=== PATIENT | female | born 1975 | race Caucasian/White ===

== ENCOUNTER 2017-03-21 20:01 | Emergency (ER) | payer OTHER ==
[2017-03-21 20:37] VITALS: BP 196/91; PULSE 97; RESP 16; TEMP 98.3
--- NOTE | 2017-03-21 21:45 | ED ---
URI HPI - General Chief Complaint: Upper Respiratory Infection Stated Complaint: sick/cough/ear ache Time Seen by Provider: 03/21/17 21:33 Source: patient, RN notes reviewed Mode of arrival: ambulatory Limitations: no limitations - History of Present Illness Initial Comments: This is a pleasant 41-year-old female presents emergency department complaining of right ear pain. Patient has had some symptoms of upper respiratory infection for the past few days. However today she started getting pain in the right ear. Patient has mild dizziness with change of position. Patient also has pressure and popping in the ear. Patient denies any proximal swallowing. No shortness of breath. No chest pain or fever. Patient is a cigarette smoker. Patient does have a history of hypertension. Patient has a primary care physician she can follow-up with. No abdominal pain. No nausea or vomiting. No change in bowel much urination. No rashes or lesions. - Related Data Previous Rx's Medication Instructions Recorded Cephalexin [Keflex] 500 mg PO Q12HR 7 Days 09/04/16 Amoxicillin 500 mg PO Q8H #30 capsule 03/21/17 Allergies Allergy/AdvReac Type Severity Reaction Status Date / Time No Known Allergies Allergy Verified 09/04/16 14:20 Review of Systems ROS Statement: Those systems with pertinent positive or pertinent negative responses have been documented in the HPI. ROS Other: All systems not noted in ROS Statement are negative. Past Medical History Past Medical History: No Reported History History of Any Multi-Drug Resistant Organisms: None Reported Past Surgical History: No Surgical Hx Reported Past Psychological History: No Psychological Hx Reported Smoking Status: Current every day smoker Past Alcohol Use History: None Reported Past Drug Use History: None Reported General Exam - General Exam Comments Initial Comments: Well-developed, well-nourished 41-year-old female in no distress Limitations: no limitations General appearance: alert, in no apparent distress Head exam: Present: atraumatic, normocephalic, normal inspection Eye exam: Present: normal appearance, PERRL, EOMI. Absent: scleral icterus, conjunctival injection, periorbital swelling ENT exam: Present: normal exam, mucous membranes moist, normal external ear exam , other (Right TM is erythematous, loss of landmarks, dullness). Absent: TM's normal bilaterally Neck exam: Present: normal inspection. Absent: tenderness, meningismus, lymphadenopathy Respiratory exam: Present: normal lung sounds bilaterally. Absent: respiratory distress, wheezes, rales, rhonchi, stridor Cardiovascular Exam: Present: regular rate, normal rhythm, normal heart sounds. Absent: systolic murmur, diastolic murmur, rubs, gallop, clicks GI/Abdominal exam: Present: soft, normal bowel sounds. Absent: distended, tenderness, guarding, rebound, rigid Extremities exam: Present: normal inspection, full ROM, normal capillary refill. Absent: tenderness, pedal edema, joint swelling, calf tenderness Back exam: Present: normal inspection Neurological exam: Present: alert, oriented X3, CN II-XII intact Psychiatric exam: Present: normal affect, normal mood Skin exam: Present: warm, dry, intact, normal color. Absent: rash Course Vital Signs 03/21/17 20:22 Temperature 98.3 F Pulse Rate 97 Respiratory 16 Rate Blood Pressure 196/91 O2 Sat by Pulse 98 Oximetry Medical Decision Making - Medical Decision Making I did discuss the patient's blood pressure area patient apparently has had elevated blood pressure in the past but is not treated. Patient should follow- up with her regular physician regarding that.Smoking cessation was discussed for greater than 3 minutes with the patient. Risks of smoking were discussed. Health issues and secondhand smoke issues were discussed. Patient was advised stop smoking. The patient was found to be hypertensive in the ER today. Findings were reviewed with the patient. Patient was advised to follow-up with the primary care physician for further evaluation of blood pressure. Return parameters and follow-up parameters discussed Disposition Clinical Impression: Acute otitis media, right, Hypertension, poor control Disposition: HOME SELF-CARE Condition: Good Instructions: Otitis Media (ED), Hypertension (ED) Additional Instructions: Alternate acetaminophen and ibuprofen for discomfort. Take the antibiotics as directed. Follow-up with your regular physician without fail. Discharge instructions Prescriptions: Amoxicillin 500 mg PO Q8H #30 capsule Referrals: Curly Walker MD [Primary Care Provider] - 1-2 days Time of Disposition: 21:41
== END 2017-03-21 21:47 | disposition home or self-care (01) ==
LOC: EC 20:01
DX: H66.91 Otitis media, unspecified, right ear (principal); I10 Essential (primary) hypertension; R42 Dizziness and giddiness; F17.210 Nicotine dependence, cigarettes, uncomplicated
CPT/HCPCS: 99283

== ENCOUNTER 2019-02-08 10:08 | Emergency (ER) | payer OTHER ==
[2019-02-08 10:52] VITALS: RESP 18
[2019-02-08] MEDS ORDERED: SODIUM CHLORIDE 0.9% 1,000 ML IV STA (10:56)
[2019-02-08] MEDS ORDERED: KETOROLAC 30 MG/ML 1 ML VIAL IVP STA (11:01)
[2019-02-08 11:53] LABS: Anisocytosis Slight; Basophils % (A) 0 %; Eosinophils % (A) 1 %; HCT 36.2 % (34.0-46.0); HGB 11.8 gm/dL (11.4-16.0); Lymphocytes # (A) 0.7 k/uL (1.0-4.8); Lymphocytes % (A) 12 %; MCH 24.4 pg (25.0-35.0); MCHC 32.7 g/dL (31.0-37.0); MCV 74.6 fL (80.0-100.0); Mean Platelet Volume 7.1; Microcytosis Moderate; Monocytes # (A) 0.5 k/uL (0-1.0); Monocytes % (A) 8 %; Neutrophils # (A) 4.7 k/uL (1.3-7.7); Neutrophils % (A) 75 %; Platelet Count 223 k/uL (150-450); RBC 4.86 m/uL (3.80-5.40); RDW 17.3 % (11.5-15.5); WBC 6.2 k/uL (3.8-10.6)
[2019-02-08 12:01] LABS: ALT 25 U/L (9-52); AST 25 U/L (14-36); Albumin 4.7 g/dL (3.5-5.0); Alkaline Phosphatase 100 U/L (38-126); Amylase 58 U/L (30-110); Anion Gap 12 mmol/L; Blood Urea Nitrogen 12 mg/dL (7-17); Calcium 9.1 mg/dL (8.4-10.2); Carbon Dioxide 24 mmol/L (22-30); Chloride 103 mmol/L (98-107); Glucose 112 mg/dL (74-99); Lipase 49 U/L (23-300); Potassium 3.8 mmol/L (3.5-5.1); Sodium 139 mmol/L (137-145); Total Bilirubin 0.8 mg/dL (0.2-1.3); Total Protein 7.9 g/dL (6.3-8.2)
--- NOTE | 2019-02-08 12:09 | ED ---
Abdominal Pain HPI - General Chief Complaint: Abdominal Pain Stated Complaint: Stomach pain Time Seen by Provider: 02/08/19 10:55 Source: patient, RN notes reviewed Mode of arrival: ambulatory Limitations: no limitations - History of Present Illness Initial Comments: 43-year-old female presents emergency Department chief complaint of left-sided abdominal pain. Patient states started a few days ago associated fever. Patient had no diarrhea no constipation melena or hematochezia. She has no dysuria no hematuria no history kidney stones. She denies any prior bowel infections including diverticulitis or colitis. Patient states that movement and laying back makes the pain worse. Denies any chest pain or shortness breath. Patient has been taking Motrin but last dose was last night. - Related Data Home Medications Medication Instructions Recorded Confirmed No Known Home Medications 02/08/19 02/08/19 Allergies Allergy/AdvReac Type Severity Reaction Status Date / Time bupropion [From Wellbutrin] Allergy Anaphylaxis Verified 02/08/19 11:18 varenicline [From Chantix] Allergy Anaphylaxis Verified 02/08/19 11:18 opoids Allergy Anaphylaxis Uncoded 02/08/19 10:53 Review of Systems ROS Statement: Those systems with pertinent positive or pertinent negative responses have been documented in the HPI. ROS Other: All systems not noted in ROS Statement are negative. Past Medical History Past Medical History: No Reported History History of Any Multi-Drug Resistant Organisms: None Reported Past Surgical History: No Surgical Hx Reported Past Psychological History: No Psychological Hx Reported Smoking Status: Current every day smoker Past Alcohol Use History: None Reported Past Drug Use History: None Reported General Exam Limitations: no limitations General appearance: alert, in no apparent distress Head exam: Present: atraumatic, normocephalic, normal inspection Neck exam: Present: normal inspection. Absent: tenderness, meningismus, lymphadenopathy Respiratory exam: Present: normal lung sounds bilaterally. Absent: respiratory distress, wheezes, rales, rhonchi, stridor Cardiovascular Exam: Present: regular rate, normal rhythm, normal heart sounds. Absent: systolic murmur, diastolic murmur, rubs, gallop, clicks GI/Abdominal exam: Present: soft, tenderness (Moderate left-sided abdominal tenderness), normal bowel sounds. Absent: distended, guarding, rebound, rigid Back exam: Absent: CVA tenderness (R), CVA tenderness (L) Neurological exam: Present: alert, oriented X3, CN II-XII intact Skin exam: Present: warm, dry, intact, normal color. Absent: rash Course Vital Signs 02/08/19 10:50 Temperature 99.0 F Pulse Rate 109 H Respiratory 18 Rate Blood Pressure 171/95 O2 Sat by Pulse 96 Oximetry Medical Decision Making - Medical Decision Making 43-year-old female presented for abdominal pain labs, CT was obtained CT shows evidence of aortitis. Patient case discussed with Dr. Jake meek we discussed the case with infectious disease who recommends patient be transferred to a large facility for possible rheumatology. Patient was given IV steroids and antibiotics. - Lab Data Result diagrams: 02/08/19 11:30 02/08/19 11:30 Lab Results 02/08/19 02/08/19 02/08/19 Range/Units 11:30 11:30 11:30 WBC 6.2 (3.8-10.6) k/uL RBC 4.86 (3.80-5.40) m/uL Hgb 11.8 (11.4-16.0) gm/dL Hct 36.2 (34.0-46.0) % MCV 74.6 L (80.0-100.0) fL MCH 24.4 L (25.0-35.0) pg MCHC 32.7 (31.0-37.0) g/dL RDW 17.3 H (11.5-15.5) % Plt Count 223 (150-450) k/uL Neutrophils % 75 % Lymphocytes % 12 % Monocytes % 8 % Eosinophils % 1 % Basophils % 0 % Neutrophils # 4.7 (1.3-7.7) k/uL Lymphocytes # 0.7 L (1.0-4.8) k/uL Monocytes # 0.5 (0-1.0) k/uL Eosinophils # 0.0 (0-0.7) k/uL Basophils # 0.0 (0-0.2) k/uL Anisocytosis Slight Microcytosis Moderate Sodium 139 (137-145) mmol/L Potassium 3.8 (3.5-5.1) mmol/L Chloride 103 (98-107) mmol/L Carbon Dioxide 24 (22-30) mmol/L Anion Gap 12 mmol/L BUN 12 (7-17) mg/dL Creatinine 0.52 (0.52-1.04) mg/dL Est GFR (CKD-EPI)AfAm >90 (>60 ml/min/1.73 sqM) Est GFR (CKD-EPI)NonAf >90 (>60 ml/min/1.73 sqM) Glucose 112 H (74-99) mg/dL Plasma Lactic Acid Rio 0.9 (0.7-2.0) mmol/L Calcium 9.1 (8.4-10.2) mg/dL Total Bilirubin 0.8 (0.2-1.3) mg/dL AST 25 (14-36) U/L ALT 25 (9-52) U/L Alkaline Phosphatase 100 (38-126) U/L Total Protein 7.9 (6.3-8.2) g/dL Albumin 4.7 (3.5-5.0) g/dL Amylase 58 (30-110) U/L Lipase 49 (23-300) U/L Urine Color Urine Appearance (Clear) Urine pH (5.0-8.0) Ur Specific Merritt (1.001-1.035) Urine Protein (Negative) Urine Glucose (UA) (Negative) Urine Ketones (Negative) Urine Blood (Negative) Urine Nitrite (Negative) Urine Bilirubin (Negative) Urine Urobilinogen (<2.0) mg/dL Ur Leukocyte Esterase (Negative) Urine RBC (0-5) /hpf Urine WBC (0-5) /hpf Ur Squamous Epith Cells (0-4) /hpf Urine Mucus (None) /hpf Urine HCG, Qual (Not Detectd) 02/08/19 02/08/19 Range/Units 13:13 13:13 WBC (3.8-10.6) k/uL RBC (3.80-5.40) m/uL Hgb (11.4-16.0) gm/dL Hct (34.0-46.0) % MCV (80.0-100.0) fL MCH (25.0-35.0) pg MCHC (31.0-37.0) g/dL RDW (11.5-15.5) % Plt Count (150-450) k/uL Neutrophils % % Lymphocytes % % Monocytes % % Eosinophils % % Basophils % % Neutrophils # (1.3-7.7) k/uL Lymphocytes # (1.0-4.8) k/uL Monocytes # (0-1.0) k/uL Eosinophils # (0-0.7) k/uL Basophils # (0-0.2) k/uL Anisocytosis Microcytosis Sodium (137-145) mmol/L Potassium (3.5-5.1) mmol/L Chloride (98-107) mmol/L Carbon Dioxide (22-30) mmol/L Anion Gap mmol/L BUN (7-17) mg/dL Creatinine (0.52-1.04) mg/dL Est GFR (CKD-EPI)AfAm (>60 ml/min/1.73 sqM) Est GFR (CKD-EPI)NonAf (>60 ml/min/1.73 sqM) Glucose (74-99) mg/dL Plasma Lactic Acid Rio (0.7-2.0) mmol/L Calcium (8.4-10.2) mg/dL Total Bilirubin (0.2-1.3) mg/dL AST (14-36) U/L ALT (9-52) U/L Alkaline Phosphatase (38-126) U/L Total Protein (6.3-8.2) g/dL Albumin (3.5-5.0) g/dL Amylase (30-110) U/L Lipase (23-300) U/L Urine Color Yellow Urine Appearance Clear (Clear) Urine pH 7.0 (5.0-8.0) Ur Specific Merritt >1.050 H (1.001-1.035) Urine Protein Trace H (Negative) Urine Glucose (UA) Negative (Negative) Urine Ketones 1+ H (Negative) Urine Blood Small H (Negative) Urine Nitrite Negative (Negative) Urine Bilirubin Negative (Negative) Urine Urobilinogen 2.0 (<2.0) mg/dL Ur Leukocyte Esterase Negative (Negative) Urine RBC 2 (0-5) /hpf Urine WBC <1 (0-5) /hpf Ur Squamous Epith Cells 2 (0-4) /hpf Urine Mucus Rare H (None) /hpf Urine HCG, Qual Not Detected (Not Detectd) Disposition Clinical Impression: Aortitis Disposition: OTHER INSTITUTION NOT DEFINED Condition: Stable Referrals: Curly Walker MD [Primary Care Provider] - 1-2 days Time of Disposition: 13:49 - Out of Hospital Transfer - Req. Specs Out of Hospital Transfer - Requested Specifics: Other Emergency Center ([facility])
--- NOTE | 2019-02-08 12:36 | CT ---
EXAMINATION TYPE: CT abdomen pelvis w con DATE OF EXAM: 02/08/2019 COMPARISON: None HISTORY: RUQ pain CT DLP: 1959.9 mGycm CONTRAST: CT scan of the abdomen and pelvis is performed without Oral Contrast and with IV Contrast, patient in jected with 100 mL of Isovue 300. FINDINGS: LUNG BASES-: No visible nodule. No infiltrate. LIVER/GB: No calcified gallstones. Simple cyst left hepatic lobe measuring 1.5 cm. Biliary tree is of normal caliber. PANCREAS: No inflammation. No distinct mass. SPLEEN: There is evidence of splenomegaly measuring 14.8 cm craniocaudal dimension. No lesion seen. ADRENALS: No nodule. No thickening. KIDNEYS/BLADDER: No hydronephrosis. No nephrolithiasis. No distinct renal mass. Urinary bladder g rossly unremarkable. BOWEL: Normal appendix. Normal bowel caliber. No inflammation. GENITAL ORGANS: No gross abnormality. LYMPH NODES: No greater than 1cm abdominal or pelvic lymph nodes are appreciated. AORTA: There is dirty fat noted adjacent to the abdominal aorta beginning at the take off of the oscar ac axis extending caudally with measurement of approximately 5.6 x 3.9 x 2.5 cm. There is ill-definit ion of the adjacent aortic wall. The findings are of uncertain etiology and could reflect aortitis in fectious and noninfectious types. Additional possibility would be that of developing adenopathy. Stri ct clinical correlation is advised as well as appropriate follow-up. OSSEOUS STRUCTURES: No significant abnormality is seen. OTHER: Low anterior abdominal wall fat-containing hernia. IMPRESSION: 1. There is dirty fat noted adjacent to the abdominal aorta beginning at the take off of the celiac a xis extending caudally with measurement of approximately 5.6 x 3.9 x 2.5 cm. There is ill-definition of the adjacent aortic wall. The findings are of uncertain etiology and could reflect aortitis infect ious and noninfectious types. Additional possibility would be that of developing adenopathy. Strict c linical correlation is advised as well as appropriate follow-up. 2. Splenomegaly
[2019-02-08 13:32] LABS: Appearance,Urine Clear (Clear); Bilirubin,Urine Negative (Negative); Blood,Urine Small (Negative); Color,Urine Yellow; Glucose,Urine (UA) Negative (Negative); Ketones,Urine 1+ (Negative); Leukocyte Esterase,Urine Negative (Negative); Mucus,Urine Rare /hpf; Nitrite,Urine Negative (Negative); Protein,Urine Trace (Negative); RBC,Urine 2 /hpf (0-5); Squamous Epithelial Cell,Urine 2 /hpf (0-4); WBC,Urine <1 /hpf (0-5)
[2019-02-08 13:34] LABS: Specific Gravity,Urine >1.050 (1.001-1.035)
[2019-02-08] MEDS ORDERED: methylPREDNISolone SOD SUCCI 125 MG/2 ML VIAL IV STA (13:38)
[2019-02-08] MEDS ORDERED: PIPERACILLIN-TAZOBACTAM 3.375 GM in SODIUM CHLORIDE 0.9% 100 ML IVPB STA (13:38)
[2019-02-08] MEDS ORDERED: SODIUM CHLORIDE 0.9% 1,000 ML IV SCH (14:00)
[2019-02-08 15:33] VITALS: BP 165/106; PULSE 100; TEMP 98.7
== END 2019-02-08 15:33 | disposition other institution (70) ==
LOC: EC 10:08
DX: I77.6 Arteritis, unspecified (principal); F17.200 Nicotine dependence, unspecified, uncomplicated; Z88.5 Allergy status to narcotic agent; Z88.8 Allergy status to other drugs, medicaments and biological substances
CPT/HCPCS: 36415; 80053; 82150; 83605; 83690; 85025; 81001; 81025; 87040; 74177; 99285; 96365; 96375 ×2; 96361 ×2; J2543; J2930; J1885; Q9967

== ENCOUNTER 2019-11-23 19:47 | Emergency (ER) | payer OTHER ==
[2019-11-23] MEDS ORDERED: predniSONE 20 MG TAB PO STA (20:21)
[2019-11-23] MEDS ORDERED: FAMOTIDINE 20 MG TAB PO STA (20:21)
[2019-11-23] MEDS ORDERED: IPRATROPIUM-ALBUTEROL 3 ML NEB INHALATION STA (20:21)
--- NOTE | 2019-11-23 20:24 | ED ---
General Adult HPI - General Chief complaint: Upper Respiratory Infection Stated complaint: cold Time Seen by Provider: 11/23/19 19:59 Source: patient Mode of arrival: ambulatory Limitations: no limitations - History of Present Illness Initial comments: Patient is a 44-year-old female with history of COPD and asthma presenting to the emergency department with a chief complaint of cough and congestion. States her symptoms began about 2 days ago with a productive cough with white sputum production. Patient also reports wheezing and some shortness of breath but denies any chest pain. States that she feels like her asthma is getting treated again. Patient reports at work she is exposed to dust triggers the collar symptoms to become aggravated. Also reports bilateral otalgia along with sinus congestion. States that she also developed a sore throat. States that she should be using an inhaler Vinnie but cannot find. es any night sweats fevers or chills. Denies any nausea vomiting diarrhea. - Related Data Previous Rx's Medication Instructions Recorded Albuterol Inhaler [Ventolin Hfa 1 - 2 puff INHALATION RT-Q6H PRN 11/23/19 Inhaler] #1 inhaler Azithromycin [Zithromax Z-pack] 0 mg PO DIRECTED #1 pack 11/23/19 Famotidine [Pepcid] 20 mg PO BID #4 tablet 11/23/19 predniSONE 50 mg PO DAILY #5 tab 11/23/19 Allergies Allergy/AdvReac Type Severity Reaction Status Date / Time bupropion [From Wellbutrin] Allergy Anaphylaxis Verified 11/23/19 19:53 varenicline [From Chantix] Allergy Anaphylaxis Verified 11/23/19 19:53 opoids Allergy Anaphylaxis Uncoded 11/23/19 19:53 Review of Systems ROS Statement: Those systems with pertinent positive or pertinent negative responses have been documented in the HPI. ROS Other: All systems not noted in ROS Statement are negative. Past Medical History Past Medical History: No Reported History History of Any Multi-Drug Resistant Organisms: None Reported Past Surgical History: No Surgical Hx Reported Past Psychological History: No Psychological Hx Reported Smoking Status: Current every day smoker Past Alcohol Use History: None Reported Past Drug Use History: None Reported General Exam Limitations: no limitations General appearance: alert, in no apparent distress, obese Head exam: Present: atraumatic, normocephalic, normal inspection Eye exam: Present: normal appearance Pupils: Present: normal accommodation ENT exam: Present: normal exam, normal oropharynx (No tonsillar erythema, enlargement or exudates. Uvula midline.), mucous membranes moist, TM's normal bilaterally, normal external ear exam Neck exam: Present: normal inspection, full ROM. Absent: lymphadenopathy Respiratory exam: Present: wheezes (Bilateral wheezing) Cardiovascular Exam: Present: regular rate, normal rhythm, normal heart sounds GI/Abdominal exam: Present: soft. Absent: distended, tenderness Extremities exam: Present: normal inspection, full ROM, normal capillary refill Back exam: Present: normal inspection, full ROM Neurological exam: Present: alert, oriented X3 Psychiatric exam: Present: normal affect, normal mood Skin exam: Present: warm, dry, intact, normal color Course Vital Signs 11/23/19 11/23/19 11/23/19 19:51 20:29 20:30 Temperature 98.2 F Pulse Rate 92 81 Respiratory 20 20 Rate Blood Pressure 142/93 O2 Sat by Pulse 97 Oximetry 11/23/19 20:37 Temperature Pulse Rate 85 Respiratory Rate Blood Pressure O2 Sat by Pulse Oximetry Medical Decision Making - Medical Decision Making Patient is a 44-year-old female with history of asthma and COPD presenting to the emergency department with a chief complaint of cough and sinus congestion. Exam patient is wheezing bilaterally. States that this feels like asthma exacerbation. Patient is a smoker. ENT examination is unremarkable. Patient was given a breathing treatment with improvement in symptoms. Patient was also given a single dose of Pepcid and prednisone. Patient will be discharged with 5 days of prednisone. She was also given an albuterol inhaler. Patient advised to follow-up with primary care. Influenza negative. X-ray unremarkable. No chest pain. Strict return parameters were thoroughly discussed with patient was understanding and agreeable. Case discussed with physician. - Lab Data Lab Results 11/23/19 Range/Units 19:55 Influenza Type A RNA Not Detected (Not Detectd) Influenza Type B (PCR) Not Detected (Not Detectd) Disposition Clinical Impression: Asthma exacerbation, Cough Disposition: HOME SELF-CARE Condition: Stable Instructions (If sedation given, give patient instructions): COPD (Chronic Obstructive Pulmonary Disease) (DC) Additional Instructions: Take prescribed medication as directed. Follow-up with primary care. Return to emergency department if symptoms worsen. Prescriptions: predniSONE 50 mg PO DAILY #5 tab Albuterol Inhaler [Ventolin Hfa Inhaler] 1 - 2 puff INHALATION RT-Q6H PRN #1 inhaler PRN Reason: Shortness Of Breath Azithromycin [Zithromax Z-pack] 0 mg PO DIRECTED #1 pack Is patient prescribed a controlled substance at d/c from ED?: No Referrals: Curly Walker MD [Primary Care Provider] - 1-2 days Time of Disposition: 21:00
--- NOTE | 2019-11-23 20:55 | XR ---
EXAMINATION TYPE: XR chest 2V DATE OF EXAM: 11/23/2019 COMPARISON: NONE HISTORY: Cough and fever TECHNIQUE: 2 views FINDINGS: Heart is normal. Lungs are clear of infiltrate. There is no heart failure. There is no pleu ral effusion. Bony thorax is intact. IMPRESSION: No active cardiopulmonary disease. Normal heart.
[2019-11-23 21:07] VITALS: BP 140/90; PULSE 84; RESP 18; TEMP 98.1
== END 2019-11-23 21:06 | disposition home or self-care (01) ==
LOC: EC 19:47
DX: J45.901 Unspecified asthma with (acute) exacerbation (principal); F17.200 Nicotine dependence, unspecified, uncomplicated; Z88.5 Allergy status to narcotic agent; Z88.8 Allergy status to other drugs, medicaments and biological substances
CPT/HCPCS: 94640; 87502; 71046; 99284; J7512

== ENCOUNTER → 2023-11-28 | Outpatient (CLI) | payer OTHER ==
--- NOTE | 2023-12-01 19:32 | MM ---
Reason for Exam: Screening (asymptomatic). Last mammogram was performed 12 year(s) and 10 month(s) ago. Patient History: Menarche at age 9. First Full-Term at age 17. Postmenopausal. Maternal aunt had breast cancer at or over age 50. Risk Values: Joann 5 year model risk: 0.8%. NCI Lifetime model risk: 7.1%. Prior Study Comparison: No prior studies available for comparison. Tissue Density: There are scattered fibroglandular densities. Findings: Analyzed By CAD. No significant mass, suspicious microcalcification, or other discrete abnormality is seen. Overall Assessment: Negative, BI-RAD 1 Management: Screening Mammogram of both breasts in 1 year. . Patient should continue monthly self-breast exams. A clinical breast exam by your physician is recommended on an annual basis. This exam should not preclude additional follow-up of suspicious palpable abnormalities. Note on Joann scores and lifetime risk: 1. A Joann score greater than 3% is considered moderate risk. If this is the case, consider specialist referral to assess eligibility for a risk reducing agent. 2. If overall lifetime risk for the development of breast cancer is 20% or higher, the patient may qualify for future screening with alternating mammogram and breast MRI. Electronically signed and approved by: Jenn Avalos M.D. Radiologist
== END | disposition home or self-care (01) ==
LOC: RADMAMWWP 08:51
PROVIDERS: ATTEND Family Medicine
DX: Z12.31 Encounter for screening mammogram for malignant neoplasm of breast (principal); Z78.0 Asymptomatic menopausal state; Z80.3 Family history of malignant neoplasm of breast
CPT/HCPCS: 77063; 77067

== ENCOUNTER → 2023-12-05 | Outpatient (CLI) | payer OTHER ==
--- NOTE | 2023-12-05 10:34 | CTL ---
EXAMINATION TYPE: CT Low Dose Lung DATE OF EXAM ORDERED: 12/05/2023 HISTORY: Current smoker.. Lung cancer screening CT DLP: 141.[address] CTDI: 4.0 mGy Automated exposure control for dose reduction was used. COMPARISON: None available. TECHNIQUE: Low dose computed tomography scan was performed through the chest at 1 mm thick sections a nd reconstructed images in multiple planes at 1 mm and [address] DIAGNOSTIC QUALITY: Satisfactory FINDINGS: LUNG NODULES: None. LUNGS: COPD: Severity: Mild upper lobe predominant centrilobular emphysema. Fibrosis: Severity: None Lymph nodes: Other findings: RIGHT PLEURAL SPACE: Effusion: None Calcification: None Thickening: None Pneumothorax: None LEFT PLEURAL SPACE: Effusion: None Calcification: None Thickening: None Pneumothorax: None HEART: Heart Size: Normal Coronary Calcification: None Pericardial Effusion: None OTHER FINDINGS: Upper abdomen: None Bony thorax: None Supraclavicular region: None Other: None IMPRESSION: 1. Negative lung cancer screening examination for significant pulmonary nodules. 2. Mild to moderate emphysema. 3. No acute findings. CT LUNG RAD AND CT CHEST RECOMMENDATION: Lung-Rad 1 Negative: Continue annual screening with LDCT in 12 months. S Modifier (other clinically significant findings): None.
== END | disposition home or self-care (01) ==
LOC: RADCTMAIN 09:04
PROVIDERS: ATTEND Family Medicine
DX: Z12.2 Encounter for screening for malignant neoplasm of respiratory organs (principal); F17.210 Nicotine dependence, cigarettes, uncomplicated; J43.2 Centrilobular emphysema
CPT/HCPCS: 71271